=== PATIENT | female | born 1960 | race Caucasian/White ===

== ENCOUNTER 2016-09-14 09:28 | Day surgery (SDC) | payer BC ==
[2016-09-13 09:47] VITALS: Ht 160 cm; Wt 132.0 kg
[~2016-09-14] VITALS: Ht 160 cm; Wt 132.0 kg
[~2016-09-14 09:28] MED LIST: ATOR20TA38 PO; DABI150C PO; FISH1CAP PO; HYD25 PO; LEVO88TA44 PO; MAGN500C PO; METO-407 PO; POTA20TA8 PO; RED600CA7 PO; SOD CHLORIDE 0.45% 1,000 ML IV SCH; UBID100C24 PO; VIT D3 PO
[2016-09-14 09:37] VITALS: BP 135/97; PULSE 66; RESP 16
[2016-09-14] MEDS ORDERED: LIDOCAINE 1% (MDV) 20 ML INJ ONE (10:53)
[2016-09-14 10:56] LABS: BASOPHILS % 0.5 % (0.0-2.0); EOSINOPHILS # 0.1 10^3/ul (0.0-0.5); EOSINOPHILS % 1.1 % (0.0-7.0); HEMOGLOBIN 15.2 g/dl (12.0-16.0); LYMPHOCYTES # 1.8 10^3/ul (0.8-2.9); LYMPHOCYTES % 21.4 % (15.0-51.0); MEAN CORPUSCULAR HEMOGLOBIN 30.8 pg (29.0-33.0); MEAN CORPUSCULAR HGB CONC 33.8 g/dl (32.0-37.0); MEAN CORPUSCULAR VOLUME 91.3 fl (82.0-101.0); MEAN PLATELET VOLUME 9.5 fl (7.4-10.4); MONOCYTE # 0.5 10^3/ul (0.3-0.9); MONOCYTES % 6.2 % (0.0-11.0); NEUTROPHIL # 6.1 10^3/ul (1.6-7.5); NEUTROPHILS % 70.8 % (39.0-77.0); PLATELET COUNT 219 10^3/UL (140-440); RED BLOOD COUNT 4.93 10^6/ul (4.20-5.40); RED CELL DISTRIBUTION WIDTH 12.8 % (11.5-14.5); UNCORRECTED WBC 8.6 10^3/ul (4.8-10.8); WHITE BLOOD COUNT 8.6 10^3/ul (4.8-10.8)
[2016-09-14 10:58] LABS: CONDITION 1
[2016-09-14] MEDS ORDERED: FENTAnyl 50 MCG/ML VIAL IV PRN ×2 (11:00)
[2016-09-14] MEDS ORDERED: EPHEDrine SULFATE 50 MG/5 ML SYG IV PRN (11:00)
[2016-09-14] MEDS ORDERED: LABETALOL HCL 20MG INJ IV PRN (11:00)
[2016-09-14 11:02] LABS: POTASSIUM 4.3 mmol/L (3.5-5.1)
[2016-09-14 11:08] LABS: CALCIUM 9.3 mg/dl (8.4-10.2); CREATININE 0.79 mg/dl (0.44-1.00)
--- NOTE | 2016-09-14 11:20 | PDOCDIS ---
Discharge Instructions DIAGNOSIS Discharge Diagnosis: Afib s/p external cardioversion to NSR CONDITION Patient Condition: Good HOME CARE INSTRUCTIONS: Diet Instructions: Regular ACTIVITY: Activity Restrictions: No Restrictions FOLLOW UP/APPOINTMENTS Appointments Charo as scheduled SCHOOL/WORK RELEASE May return to School/Work with: no restrictions MARYSOL SIDHU Sep 14, 2016 11:20
[2016-09-14 11:27] VITALS: BP 145/61; RESP 21
[2016-09-14 11:35] VITALS: BP 142/75; PULSE 56; RESP 18
[2016-09-14 11:46] VITALS: BP 136/69; PULSE 75; RESP 20
[2016-09-14 12:16] VITALS: BP 143/84; PULSE 55; RESP 18
--- NOTE | 2016-09-14 13:13 | OPR ---
DATE OF OPERATION: PROCEDURE PERFORMED: External cardioversion. PRE-PROCEDURE DIAGNOSES: Atrial fibrillation with rapid ventricular response. POST-PROCEDURE DIAGNOSIS: Normal sinus rhythm. PRIMARY PROGRAM EVALUATOR: Marysol Mancilla MD PERFORMING PROGRAM EVALUATOR: Marysol Mancilla MD HISTORY: Ms. Lopez is a pleasant 55-year-old woman with history of hypertension, obesity, obstruct puma sleep apnea as well as possible AFib. The patient with previous successful cardioversion in Aug with recurrent AFib, symptomatic. The patient has been on Pradaxa consistently for great er than 30 days without missing a dose. She took it this morning. She presents today for cardiover madelyn. PROCEDURE DESCRIPTION: The patient brought to the procedure area in a fasting state. Defibrillatio n pads were placed in anterior, posterior positions. Deep sedation was provided by anesthesia. Ple ase see anesthesia record for further details. The patient was continuously monitored with blood pr essure, pulse oximetry, and continuous telemetry. The patient was given 1 ____ shock of 100 joules with successful conversion to sinus rhythm. She tolerated the procedure well without complication a nd was recovered by anesthesia and talking and doing well with stable blood pressure prior to discha rge. CONCLUSIONS: Status post external cardioversion with 100 joule shock x1 with conversion from atrial fibrillation to sinus rhythm. RECOMMENDATIONS: 1. Continue metoprolol. 2. Continue Pradaxa b.i.d. 3. Continue magnesium supplementation. 4. Followup as outpatient. Dictated By: MARYSOL DENNIS/JEAN Conf#: [id number] DID#: [id number]
== END 2016-09-14 12:35 | disposition home or self-care (01) ==
LOC: SDS 09:28
PROVIDERS: ATTEND Internal Medicine Interventional Cardiology
DX: I48.91 Unspecified atrial fibrillation (principal); I10 Essential (primary) hypertension; G47.33 Obstructive sleep apnea (adult) (pediatric); E66.9 Obesity, unspecified; Z68.43 Body mass index [BMI] 50.0-59.9, adult; Z88.1 Allergy status to other antibiotic agents
CPT/HCPCS: 80048; 85025; 92960

== ENCOUNTER 2017-04-11 10:38 | Day surgery (SDC) | payer BC ==
[~2017-04-11] VITALS: Ht 160 cm; Wt 116.0 kg
[~2017-04-11 10:38] MED LIST changes: +LEVO88TA PO; -LEVO88TA44 PO; -SOD CHLORIDE 0.45% 1,000 ML IV SCH; +SOD CHLORIDE 0.9% 1,000 ML IV SCH
[2017-04-11 12:05] VITALS: Ht 160 cm; Wt 116.0 kg
[2017-04-11 12:06] VITALS: BP 108/83; PULSE 69; RESP 16
[2017-04-11] MEDS ORDERED: PANT40TA3 PO (12:21)
[2017-04-11] MEDS ORDERED: CITRACAL PO (12:22)
[2017-04-11] MEDS ORDERED: MULT1CAP20 PO (12:25)
[2017-04-11] MEDS ORDERED: CHOL500010 PO (12:25)
[2017-04-11 12:34] LABS: BASOPHILS % 0.4 % (0.0-2.0); EOSINOPHILS # 0.2 10^3/ul (0.0-0.5); EOSINOPHILS % 2.2 % (0.0-7.0); HEMOGLOBIN 14.6 g/dl (12.0-16.0); LYMPHOCYTES # 1.6 10^3/ul (0.8-2.9); LYMPHOCYTES % 23.6 % (15.0-51.0); MEAN CORPUSCULAR HEMOGLOBIN 31.3 pg (29.0-33.0); MEAN CORPUSCULAR VOLUME 92.1 fl (82.0-101.0); MEAN PLATELET VOLUME 11.6 fl (7.4-10.4); MONOCYTE # 0.7 10^3/ul (0.3-0.9); MONOCYTES % 9.7 % (0.0-11.0); NEUTROPHIL # 4.3 10^3/ul (1.6-7.5); NEUTROPHILS % 63.8 % (39.0-77.0); PLATELET COUNT 207 10^3/UL (140-415); RED BLOOD COUNT 4.67 10^6/ul (4.20-5.40); RED CELL DISTRIBUTION WIDTH 12.8 % (11.5-14.5); WHITE BLOOD COUNT 6.7 10^3/ul (4.8-10.8)
[2017-04-11 12:53] LABS: ALBUMIN 3.4 g/dl (3.3-4.9); ALBUMIN/GLOBULIN RATIO 1.3; BILIRUBIN,INDIRECT 0.5 mg/dl (0-1.1); BILIRUBIN,TOTAL 0.5 mg/dl (0.2-1.3)
[2017-04-11 12:59] LABS: PT RATIO 1.3
[2017-04-11 13:01] LABS: CALCIUM 9.3 mg/dl (8.4-10.2); CREATININE 0.61 mg/dl (0.44-1.00); POTASSIUM 3.9 mmol/L (3.5-5.1)
--- NOTE | 2017-04-11 13:38 | OPR ---
Date/Time of Note Date/Time of Note DATE: 04/11/17 TIME: 13:35 Operative Report Free Text/Dictation DATE OF OPERATION: 04/11/2017 PROCEDURE PERFORMED: External cardioversion. PRE-PROCEDURE DIAGNOSES: Atrial fibrillation with rapid ventricular response. POST-PROCEDURE DIAGNOSIS: Normal sinus rhythm. PRIMARY PAINTER AIRCRAFT: Shiv Mancilla MD PERFORMING PAINTER AIRCRAFT: Shiv Mancilla MD HISTORY: Ms. Lopez is a pleasant 56-year-old woman with history of hypertension, obesity, obstructive sleep apnea as well as possible AFib. The patient with previous successful cardioversion x2 with recurrent AFib post op, symptomatic. The patient has been on Pradaxa consistently for greater than 30 days without missing a dose. She took it this morning. She presents today for cardioversion. PROCEDURE DESCRIPTION: The patient brought to the procedure area in a fasting state. Defibrillation pads were placed in anterior, posterior positions. Deep sedation was provided by anesthesia. Please see anesthesia record for further details. The patient was continuously monitored with blood pressure, pulse oximetry, and continuous telemetry. The patient was given 1 synchronized shock of 100 joules but remained in afib. A second synchronized shock of 200 joules was given with successful conversion to sinus rhythm. She tolerated the procedure well without complication and was recovered by anesthesia and talking and doing well with stable blood pressure prior to discharge. CONCLUSIONS: Status post external cardioversion from atrial fibrillation to sinus rhythm. RECOMMENDATIONS: 1. Continue metoprolol. 2. Continue Pradaxa b.i.d. 3. Continue magnesium supplementation. 4. Followup as outpatient. SHIV MANCILLA Apr 11, 2017 13:38
[2017-04-11 13:44] LABS: PROTIME 15.9 Sec (12.2-14.2)
[2017-04-11 13:45] LABS: INR 1.26; PARTIAL THROMBOPLASTIN TIME 51.3 Sec (25.0-35.0)
[2017-04-11] MEDS ORDERED: PROPOFOL 20 ML ONE (13:55)
[2017-04-11 14:28] VITALS: BP 111/58; PULSE 59; RESP 18
--- NOTE | 2017-04-12 08:26 | RADRPT ---
Vent Rate: 112 bpm RR Interval: 0 msec SD Interval: 0 msec QRS Duration: 76 msec QT Interval: 366 msec QTC Interval: 499 msec P-R-T Jeannette: 0 - 108 - 92 degrees Atrial fibrillation with rapid ventricular response with premature ventricular or aberrantly conducted complexes Rightward axis Low voltage QRS Nonspecific T wave abnormality , probably digitalis effect Abnormal ECG Electronically Signed By: Jacqueline Perkins [id number]
== END 2017-04-11 15:00 | disposition home or self-care (01) ==
LOC: SDS 10:38
PROVIDERS: ATTEND Internal Medicine Interventional Cardiology
DX: I48.91 Unspecified atrial fibrillation (principal)
CPT/HCPCS: 80053; 85025; 85610; 85730; 93005

== ENCOUNTER 2017-05-18 07:26 | Emergency (ER) | payer BC ==
[~2017-05-18] VITALS: Wt 100.0 kg
[~2017-05-18 07:26] MED LIST changes: +CHOL500010 PO; +CITRACAL PO; -FISH1CAP PO; -HYD25 PO; -MAGN500C PO; +MULT1CAP20 PO; +PANT40TA3 PO; -POTA20TA8 PO; -RED600CA7 PO; -SOD CHLORIDE 0.9% 1,000 ML IV SCH
[2017-05-18] MEDS ORDERED: CETI10CA PO (07:41)
[2017-05-18] MEDS ORDERED: AZIT250T94 PO (07:42)
--- NOTE | 2017-05-18 07:49 | ERD ---
ER Documentation Chief Complaint Date/Time DATE: 05/18/17 TIME: 07:44 Chief Complaint SORE THROAT X 3 DAYS HPI This a 56 year-old female presents the emergency department today complaining of left ear pain sore throat and cough with sputum for the last 3 days. States she is taking vitamin C and Tylenol. States she thinks she saw white spots on the back of her throat last night. Denies any fevers or chills. ROS All systems reviewed and are negative except as per history of present illness. Medications Home Meds Active Scripts Azithromycin* (Zithromax*) 250 Mg Tablet, 250 MG PO .ZPACK DIRECTED, #6 TAB TAKE 500 MG (2 TABS) THE FIRST DAY THEN 250 MG (1 TAB) DAYS 2-5 Prov:DIEUDONNE MERCER PA-C 05/18/17 Cetirizine Hcl* (Zyrtec*) 10 Mg Capsule, 10 MG PO DAILY, #14 TAB.CHEW Prov:DIEUDONNE MERCER PA-C 05/18/17 Reported Medications Multivitamin (Multivitamins) 1 Each Capsule, 1 EACH PO DAILY, CAP 04/11/17 Cholecalciferol (Vitamin D3) 5,000 Unit Tablet, 5000 UNIT PO DAILY, TAB 04/11/17 Calcium Citrate* (Citracal*) 950 Mg Tab, 1200 MG PO DAILY, TAB 04/11/17 Pantoprazole* (Protonix*) 40 Mg Tablet.dr, 40 MG PO DAILY, TAB 04/11/17 Ubidecarenone (Coq-10) 100 Mg Capsule, 300 MG PO DAILY, CAP 09/13/16 [Vit D3] No Conflict Check, 4000 PO DAILY 09/13/16 Atorvastatin Calcium* (Atorvastatin Calcium*) 20 Mg Tablet, 80 MG PO QHS, #30 TAB 09/13/16 Levothyroxine Sodium* (Synthroid*) 88 Mcg Tablet, 88 MCG PO BEFORE BREAKFAST, # 30 TAB 08/12/15 Metoprolol Tartrate* (Lopressor*) 100 Mg Tablet, 100 MG PO BID, #60 TAB 08/12/15 Dabigatran Etexilate Mesylate* (Pradaxa*) 150 Mg Capsule, 150 MG PO DAILY, CAP 08/12/15 Allergies Allergies: Coded Allergies: levofloxacin (Verified Adverse Reaction, Severe, tendonitis, 09/13/16) PMhx/Soc History of Surgery: Yes (CARLENE KNEE SX, C-SEC X2,CARDIOVERSION) Anesthesia Reaction: No Hx Neurological Disorder: Yes Hx Respiratory Disorders: Yes (SLEEP APNEA) Hx Cardiac Disorders: Yes (A-FIB, MILD MITRAL REGURGITATION) Hx Psychiatric Problems: No Hx Miscellaneous Medical Probl: Yes (OBESE) Hx Alcohol Use: No Hx Substance Use: No Hx Tobacco Use: No Physical Exam Vitals Vital Signs Date Time Temp Pulse Resp B/P Pulse Ox O2 Delivery O2 Flow Rate FiO2 05/18/17 07:29 98.0 78 18 142/72 99 Physical Exam Const: NAD Head: Atraumatic Eyes: Normal Conjunctiva ENT: Ears TMs normal. Nose no drainage. Throat erythema no exudate no vesicles. Neck: Full range of motion..~ No meningismus. Resp: Clear to auscultation bilaterally Cardio: Regular rate and rhythm, no murmurs Abd: Soft, non tender, non distended. 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 I did explain this to the patient however she was concerned because she has not had any improvement in symptoms despite [id number] medications for the past 3 days. Patient is afebrile and otherwise well-appearing. Her oxygen saturation is 98%. Do not feel she requires further workup or imaging at this time. I have low suspicion for strep pharyngitis, peritonsillar abscess, retropharyngeal abscess, otitis media, PNA, sinusitis, abscess, meningitis, sepsis, or other acute infectious bacterial process. However, given that the patient has had no improvement in symptoms over the last 3 days despite jpky-mfn-oqmhrek treatment, I did explain to her that I could give her a prescription for azithromycin that would cover her for strep throat, otitis media and pneumonia. Patient was also given a prescription for Zyrtec. Patient declined any pain medication here in the emergency department stating that she was on her way to her EDAP class and that she had taken some tylenol this am. At this time the patient is stable for discharge and outpatient management. They should follow up with their PCP in the next 1-2. They may return to the emergency department sooner if symptoms persist or worsen. Patient understood and agreed with the plan. Departure Diagnosis: Primary Impression: URI (upper respiratory infection) URI type: unspecified URI Qualified Code: J06.9 - Upper respiratory tract infection, unspecified type Condition: Fair Patient Instructions: Self-Care for Sore Throats, Preventing Common Respiratory Infections Referrals: your PCP Additional Instructions: Call your primary care doctor TOMORROW for an appointment during the next 1-2 days.See the doctor sooner or return here if your condition worsens before your appointment time. Take Tylenol for sore throat. Take antibiotics if no improvement in symptoms in the next 3-4 days.Take Zyrtec as prescribed DIEUDONNE MERCER PA-C May 18, 2017 07:49
== END 2017-05-18 07:57 | disposition home or self-care (01) ==
LOC: FTE 07:26
DX: J06.9 Acute upper respiratory infection, unspecified (principal); E66.9 Obesity, unspecified
CPT/HCPCS: 99283

== ENCOUNTER → 2018-03-14 | Outpatient (CLI) | END | disposition home or self-care (01) ==

== ENCOUNTER → 2018-04-05 | Outpatient (CLI) | END | disposition home or self-care (01) ==

== ENCOUNTER 2018-04-20 08:27 | Emergency (ER) | END 2018-04-20 10:04 | disposition home or self-care (01) ==

== ENCOUNTER → 2019-02-27 | Outpatient (CLI) | payer BC ==
[~2019-02-27] MED LIST changes: +AZIT250T PO; +CETI10CA PO
--- NOTE | 2019-02-27 15:06 | RADRPT ---
Echocardiogram Report Patient Name: JOHN WADEPatient ID: [id number] : 1960 (58y 2m)Study Date: 02/27/2019 11:24:37 AM Gender: FAccession #: [id number] Tech: Gila Trevino RDCS Location: EKG Ref.Physician: SHIV SIDHU Height(Cm): BSA: Weight(Kg): Quality: AdequateOrder Physician: SHIV SIDHU Account #: Procedures: Echocardiographic Report: Transthoracic echocardiogram with complete 2D, M-Mode, and doppler examination. Indications: Atrial Fibrillation. Measurements: 2D/M Mode Doppler Measurement Value Normal Range Measurement Value Normal Range LVIDd 2D 4.5 [ 3.8 - 5.2 ] cm AV Peak Ben 1.3 [ 100.0 - 170.0 ] cm/sec LVIDs 2D 2.9 [ 2.2 - 3.5 ] cm AV Peak PG 7.0 [ 2.0 - 9.0 ] mmHg LVPWd 2D 0.9 [ 0.6 - 0.9 ] cm LVOT Peak Ben 1.2 [ 70.0 - 110.0 ] cm/sec IVSd 2D 1.0 [ 0.6 - 0.9 ] cm LVOT Peak PG 6.0 [ 2.0 - 6.0 ] mmHg IVS/LVPW 2D 1.1 ratio TR Peak Ben 2.2 [ 100.0 - 280.0 ] cm/sec AoR Diam 2D 2.7 [ 2.3 - 3.1 ] cm TR Peak PG 19.0 mmHg LA/Ao 2D 1 ratio RVSP 27.0 [ 10.0 - 36.0 ] mmHg LA Dimen 2D 3.9 [ 2.7 - 3.8 ] cm RA Pressure 8.0 mmHg Findings: Left Ventricle: Normal left ventricular systolic function. Normal left ventricular cavity size. Normal left ventricular wall thickness. Ejection fraction is visually estimated at 55 %. Tissue Doppler/Mitral Doppler indices are indeterminate in this study due to the presence of atrial fibrillation. Right Ventricle: Normal right ventricular size. Normal right ventricular systolic function. Left Atrium: The left atrium is normal in size. Right Atrium: The right atrium is normal in size. Mitral Valve: Normal appearance and function of the mitral valve with trace physiologic regurgitation. Aortic Valve: Normal appearance of the aortic valve. No significant aortic stenosis or insufficiency. Trileaflet aortic valve. Tricuspid Valve: Normal appearance of the tricuspid valve. Unable to obtain RVSP due to minimal presence of tricuspid regurgitation. There is trace tricuspid regurgitation. Pulmonic Valve: Normal pulmonic valve appearance. Pericardium: Normal pericardium with no significant pericardial effusion. Aorta: Normal aortic root. IVC: Normal size and normal respiratory collapse consistent with normal right atrial pressure. Dilated IVC with respiratory collapse consistent with elevated right atrial pressure. Conclusions: Normal left ventricular systolic function. Normal left ventricular cavity size. Normal left ventricular wall thickness. Ejection fraction is visually estimated at 55 %. Tissue Doppler/Mitral Doppler indices are indeterminate in this study due to the presence of atrial fibrillation. Normal right ventricular size. Normal right ventricular systolic function. Normal appearance of the tricuspid valve. Unable to obtain RVSP due to minimal presence of tricuspid regurgitation. There is trace tricuspid regurgitation. Normal pericardium with no significant pericardial effusion. Normal size and normal respiratory collapse consistent with normal right atrial pressure. Dilated IVC with respiratory collapse consistent with elevated right atrial pressure. No Vegetation, masses, or thrombi seen. Electronically Signed By: Shiv Sidhu 2019-02-27 15:05:32 PDT
== END | disposition home or self-care (01) ==
LOC: EKG 11:12
PROVIDERS: ATTEND Internal Medicine Interventional Cardiology
DX: I48.91 Unspecified atrial fibrillation (principal)
CPT/HCPCS: 93306

== ENCOUNTER → 2019-03-05 | Outpatient (CLI) | payer BC ==
[~2019-03-05] MED LIST changes: +APIX5TAB PO; +CYAN100T PO; +ERGO500013 PO; +LEVO88TA42 PO; +MULTI PO; +REGADENOSON 0.4 MG/5 ML SYG ONE
--- NOTE | 2019-03-05 16:58 | SP ---
DATE OF PROCEDURE: 03/05/2019 LEXISCAN CARDIAC STRESS TEST STUDY PERFORMED: ECG portion of the Lexiscan nuclear stress test. DESCRIPTION OF STUDY: The patient was brought to stress lab in a stable and fasting state. A 0.4 mg of Lexiscan was pushed via left IV over 10 seconds. This was followed by radiotracer. The patient was monitored and tolerated injection well. Did report some chest heaviness, which resolved within a few minutes. There was no evidence of any ECG changes or other hemodynamic instability. The patient will be transferred to nuclear medicine for completion of the stress portion of this study. SUMMARY: 1. Resting ECG: Atrial fibrillation with a heart rate of 98, inferior nonspecific Q-waves and nonspecific lateral T-wave abnormalities. 2. Stress ECG: No ischemic ECG changes with stress. 3. Normal blood pressure response to stress. 4. The patient with chest pain with stress which resolves in early recovery. 5. No arrhythmias with stress except for atrial fibrillation which was there prior to procedure. CONCLUSION: This ECG portion of nuclear stress test shows no evidence of ischemic ST segment changes. Please see separately dictated nuclear perfusion report for full and final details. Dictated By: MARYSOL DENNIS/JEAN Conf#: [id number] DID#: [id number] NADINE
== END | disposition home or self-care (01) ==
LOC: NUC 11:15
PROVIDERS: ATTEND Internal Medicine Interventional Cardiology
DX: D68.59 Other primary thrombophilia (principal); I11.0 Hypertensive heart disease with heart failure; I50.30 Unspecified diastolic (congestive) heart failure; G47.33 Obstructive sleep apnea (adult) (pediatric); I48.0 Paroxysmal atrial fibrillation
CPT/HCPCS: 78452; 93017; A9500; A9505; J2785

== ENCOUNTER 2019-03-17 13:14 | Day surgery (SDC) | payer BC ==
[2019-03-17] VITALS (8 sets, daily range): BP systolic 77–115; BP diastolic 60–84; PULSE 48–72; RESP 16–28; Ht 154.9 cm; Wt 92.0 kg
[~2019-03-17] VITALS: Ht 154.9 cm; Wt 92.0 kg
[~2019-03-17 13:14] MED LIST changes: -APIX5TAB PO; -CYAN100T PO; -ERGO500013 PO; -LEVO88TA42 PO; -MULTI PO; +NACL 0.9% 3 ML SYG IV SCH; -REGADENOSON 0.4 MG/5 ML SYG ONE
[2019-03-17] MEDS ORDERED: METO-407 PO (13:54)
[2019-03-17] MEDS ORDERED: ATOR20TA38 PO (13:54)
[2019-03-17] MEDS ORDERED: APIX5TAB PO (13:55)
[2019-03-17] MEDS ORDERED: ERGO500013 PO (13:56)
[2019-03-17] MEDS ORDERED: UBID100C24 PO (13:56)
[2019-03-17] MEDS ORDERED: MULTI PO (13:56)
[2019-03-17] MEDS ORDERED: LEVO88TA42 PO (13:57)
[2019-03-17] MEDS ORDERED: CYAN100T PO (13:57)
--- NOTE | 2019-03-17 15:59 | PREAC ---
Date/Time of Note Date/Time of Note DATE: 03/17/19 TIME: 15:57 Anesthesia Eval and Record Evaluation Time Pre-Procedure Interview DATE: 03/17/19 TIME: 15:30 Age 58 Sex female NPO: 8 hrs Preoperative diagnosis A FIB Planned procedure CARDIOVERSION Past Medical History Past Medical History: Includes Cardio: Arrythmia GI: Obesity Surgery & Anesthesia Issues No known issue Meds Anticoagulation: No Beta Harman within 24 hr: Yes Reported Medications Levothyroxine Sodium* (Levoxyl*) 88 Mcg Tablet, 88 MCG PO BEFORE BREAKFAST, #30 TAB 03/17/19 Cyanocobalamin* (Vitamin B12*) 100 Mcg Tab, 100 MCG PO FOUR TIMES WEEKLY, TAB 03/17/19 Ubidecarenone (Coq-10) 100 Mg Capsule, 100 MG PO DAILY, CAP 03/17/19 Multivitamins* (Theragran*) 1 Tab Tab, 1 TAB PO DAILY, TAB 03/17/19 Ergocalciferol (Vitamin D2) (VITAMIN D2) 50,000 Unit Capsule, 58844 UNIT PO EVERY SUNDAY, CAP 03/17/19 Apixaban* (Eliquis*) 5 Mg Tablet, 5 MG PO BID, TAB 03/17/19 Metoprolol Tartrate* (Lopressor*) 100 Mg Tablet, 100 MG PO BID, #60 TAB 03/17/19 Atorvastatin Calcium* (Atorvastatin Calcium*) 20 Mg Tablet, 20 MG PO QHS, #30 TAB 03/17/19 Discontinued Reported Medications Multivitamin (Multivitamins) 1 Each Capsule, 1 EACH PO DAILY, CAP 04/11/17 Cholecalciferol (Vitamin D3) 5,000 Unit Tablet, 5000 UNIT PO DAILY, TAB 04/11/17 Calcium Citrate* (Citracal*) 950 Mg Tab, 1200 MG PO DAILY, TAB 04/11/17 Pantoprazole* (Protonix*) 40 Mg Tablet.dr, 40 MG PO DAILY, TAB 04/11/17 Ubidecarenone (Coq-10) 100 Mg Capsule, 300 MG PO DAILY, CAP 09/13/16 [Vit D3] No Conflict Check, 4000 PO DAILY 09/13/16 Atorvastatin Calcium* (Atorvastatin Calcium*) 20 Mg Tablet, 80 MG PO QHS, #30 TAB 09/13/16 Levothyroxine Sodium* (Synthroid*) 88 Mcg Tablet, 88 MCG PO BEFORE BREAKFAST, #30 TAB 12/10/15 Metoprolol Tartrate* (Lopressor*) 100 Mg Tablet, 100 MG PO BID, #60 TAB 08/12/15 Dabigatran Etexilate Mesylate* (Pradaxa*) 150 Mg Capsule, 150 MG PO DAILY, CAP 08/12/15 Discontinued Scripts Azithromycin* (Zithromax*) 250 Mg Tablet, 250 MG PO .TaylorPACK DIRECTED, #6 TAB TAKE 500 MG (2 TABS) THE FIRST DAY THEN 250 MG (1 TAB) DAYS 2-5 Prov:DIEUDONNE MERCER PA-C 05/18/17 Cetirizine Hcl* (Zyrtec*) 10 Mg Capsule, 10 MG PO DAILY, #14 TAB.CHEW Prov:DIEUDONNE MERCER PA-C 05/18/17 Current Medications IV Flush (NS 3 ml) 3 ml PER PROTOCOL IV ; Start 03/17/19 at 09:00 Meds reviewed: Yes Allergies Coded Allergies: levofloxacin (Verified Adverse Reaction, Severe, tendonitis, 09/13/16) Allergies Reviewed: Yes Labs/Studies Labs Reviewed: Reviewed by anesthesiologist Result Diagram: 03/14/19 1314 03/14/19 1314 test: N/A Studies: ECG Pre-procedure Exam Last vitals Vital Signs Date Temp Pulse Resp B/P (MAP) Pulse Ox O2 O2 Flow FiO2 Time Delivery Rate 03/17/19 99.2 72 16 112/84 97 Room Air 14:44 (93) Airway: Adequate mouth opening, Adequate thyromental dist Mallampati: Mallampati II Teeth: Normal Lung: Normal Heart: Normal ASA Physical Status ASA physical status: 3 Emergency: None Planned Anesthetic General/MAC: Mask Planned Pain Management Parenteral pain med Pre-operative Attestations Prior to commencing anesthesia and surgery, the patient was re-evaluated, there was verification of: *The patient's identity *The results of appropriate recent lab work and preoperative vital signs *The above evaluation not changing prior to induction *Anesthetic plan, risk benefits, alternative and complications discussed with patient/family; questions answered; patient/family understands, accepts and wishes to proceed. CHER CAPONE Mar 17, 2019 15:58
--- NOTE | 2019-03-17 16:04 | PDOCDIS ---
Discharge Instructions DIAGNOSIS Discharge Diagnosis Afib, converted to NSR with cardioversion CONDITION [id number] Patient Condition: [id number] Good HOME CARE INSTRUCTIONS: [id number] Diet Instructions: [id number] Regular ACTIVITY: [id number] Activity Restrictions: [id number] No Restrictions FOLLOW UP/APPOINTMENTS Follow-up Plan Continue medications as prescribed. Follow up in cardiology clinic. SCHOOL/WORK RELEASE May return to School/Work with: No Restrictions MARYSOL SIDHU Mar 17, 2019 16:04
--- NOTE | 2019-03-17 16:07 | OPR ---
Date/Time of Note Date/Time of Note DATE: 03/17/19 TIME: 16:05 Operative Report Preoperative Diagnosis Afib Postoperative Diagnosis NSR Operation/Procedure Performed Synchronized Cardioversion Surgeon see signature line Chocolate Dipper n/a Anesthesia Type: other (Deep sedation with anesthesia, see anesthesia record for full details) Estimated Blood Loss: none Transfusion none Specimen none Grafts/Implants none Complications none Procedure Description HISTORY: Ms. Lopez is a pleasant 56-year-old woman with history of hypertension, obesity, obstructive sleep apnea as well as possible AFib. The patient with previous successful cardioversion x 3, last 2 years ago. The patient has been on Apixaban consistently for greater than 30 days without missing a dose. She took it this morning. She presents today for cardioversion. PROCEDURE DESCRIPTION: The patient brought to the procedure area in a fasting state. Defibrillation pads were placed in anterior, posterior positions. Deep sedation was provided by anesthesia. Please see anesthesia record for further details. The patient was continuously monitored with blood pressure, pulse oximetry, and continuous telemetry. The patient was given 1 synchronized shock of 200 joules was given with successful conversion to sinus rhythm. She tolerated the procedure well without complication and was recovered by anesthesia and talking and doing well with stable blood pressure prior to discharge. CONCLUSIONS: Status post external cardioversion from atrial fibrillation to sinus rhythm. RECOMMENDATIONS: 1. Continue metoprolol. 2. Continue apixaban 5mg po b.i.d. 3. Continue magnesium supplementation. 4. Followup as outpatient. MARYSOL SIDHU Mar 17, 2019 16:07
--- NOTE | 2019-03-17 16:18 | PAC ---
Date/Time of Note Date/Time of Note DATE: 03/17/19 TIME: 16:18 Post-Anesthesia Notes Post-Anesthesia Note Last documented vital signs Vital Signs Date Temp Pulse Resp B/P (MAP) Pulse Ox O2 O2 Flow FiO2 Time Delivery Rate 03/17/19 99.2 72 16 112/84 97 Room Air 1617 (93) Activity: WNL Respiratory function: WNL Cardiovascular function: WNL Mental status: Baseline Pain reasonably controlled: Yes Hydration appropriate: Yes Nausea/Vomiting absent: Yes CHER CAPONE Mar 17, 2019 16:18
[2019-03-17] MEDS ORDERED: LABETALOL HCL 20MG INJ IV PRN (16:30)
[2019-03-17] MEDS ORDERED: hydrALAzine 20 MG INJ IV PRN (16:30)
[2019-03-17] MEDS ORDERED: FENTAnyl 50 MCG/ML VIAL IV PRN ×2 (16:30)
[2019-03-17] MEDS ORDERED: ONDANSETRON 4 MG INJ IV PRN (16:30)
[2019-03-17] MEDS ORDERED: EPHEDrine 25 MG/5 ML SYG IV PRN (16:30)
== END 2019-03-17 17:30 | disposition home or self-care (01) ==
LOC: SDS 13:14 → EEVIPCON 15:00 → SDS 17:30
PROVIDERS: ATTEND Internal Medicine Interventional Cardiology
DX: I48.91 Unspecified atrial fibrillation (principal)
CPT/HCPCS: 80053; 83036; 85025; 85610; 85730; 92960

== ENCOUNTER → 2019-04-18 | Outpatient (CLI) | payer BC ==
[~2019-04-18] MED LIST changes: +APIX5TAB PO; -AZIT250T PO; -CETI10CA PO; -CHOL500010 PO; -CITRACAL PO; +CYAN100T PO; -DABI150C PO; +ERGO500013 PO; -LEVO88TA PO; +LEVO88TA42 PO; -MULT1CAP20 PO; +MULTI PO; -NACL 0.9% 3 ML SYG IV SCH; -PANT40TA3 PO; -VIT D3 PO
== END | disposition home or self-care (01) ==
LOC: LAB 12:06
PROVIDERS: ATTEND Internal Medicine Clinical Cardiac Electrophysiology
DX: Z01.810 Encounter for preprocedural cardiovascular examination (principal); D68.59 Other primary thrombophilia; I50.30 Unspecified diastolic (congestive) heart failure; I10 Essential (primary) hypertension; E66.9 Obesity, unspecified; G47.33 Obstructive sleep apnea (adult) (pediatric); I48.0 Paroxysmal atrial fibrillation
CPT/HCPCS: 80048

== ENCOUNTER → 2019-04-23 | Outpatient (CLI) | payer BC ==
[~2019-04-23] MED LIST changes: +IOHEXOL 100 ML ONE; +SOD CHLORIDE 0.9% 100 ML ONE
== END | disposition home or self-care (01) ==
LOC: C/S 08:07
PROVIDERS: ATTEND Internal Medicine Clinical Cardiac Electrophysiology
DX: I48.91 Unspecified atrial fibrillation (principal)
CPT/HCPCS: 75574; Q9967